=== PATIENT | female | born 1930 | race African-American/Black ===

== ENCOUNTER 2018-11-18 09:55 | Emergency (ER) | payer MEDICARE, OTHER ==
--- NOTE | 2018-11-18 09:59 | PDOC ---
History of Present Illness - General Chief Complaint: Rash Stated Complaint: ITCHY, RASH, PAIN Time Seen by Provider: 11/18/18 09:58 History Source: Patient Exam Limitations: No Limitations - History of Present Illness Initial Comments: 11/18/18 10:30 HPI Ms Byers is an 88 y/o female with h/o HTN, shingles, DM2 presenting with generalized faint rash on back x 2 days, associated with pain, itching. Has been applying calomine cream without effect. No other meds taken. No known triggers or environmental precipitants. No contact with new detergents or illnesses or clothing. Denies fever, chills, chest pain, SOB, palpitation, dizziness, weakness, N, V, D , abdominal pain, bladder and bowel problems, leg swelling, no prodromal URI sx. No sick contacts or travel. No new changes in medications. No suspicious food intake Allergies: None Past Medical History: as documented in EMR/HPI Social history: Lives with family. No tobacco, ETOH or drug use. Surgical history: noncontributory Meds: as documented in EMR PMD: Abril Review of systems Constitutional: no fevers or chills. HEENT: no headache or dizziness. No congestion. CVS: no cp or syncope. Resp: no sob. No cough. Gastrointestinal: no abdominal pain, nausea or vomiting. MUSCULOSKELETAL: No joint pain and swelling. No neck or back pain. SKIN: no redness or skin changes, no discharge, no wounds. +Rash Hematologic: no easy bruising/bleeding. NEUROLOGIC: No headache, dizziness, LOC or altered mental status. No weakness, numbness or tingling. Allergic/Immunologic: no allergies All other systems reviewed and negative, or as documented in HPI. Physical exam: General: Well appearing, awake and alert, NAD. HEENT: NCAT, PERRL, EOMI, clear conjunctiva, anicteric, moist mucus membranes, clear oropharynx, no oral lesions.. Neck: neck supple, FROM Resp: normal and even respirations, no respiratory distress CVS: 2+ peripheral pulses throughout, no peripheral edema Abdomen: soft, NTND, no peritoneal signs. Back: nontender, normal inspection and ROM MSK: no edema, MALLOY x4, ROM intact. No clubbing or cyanosis. normal bulk and tone. Neuro: alert, Skin: warm and well perfused, cap refill <2 sec, normal color; +faint small raised rash over upper back, crossing dermatome distribution; overlying calomine cream visible; no discharge, no crusting, no desquamatization, no vesicles, no mucosal membrane involvement Past History - Past Medical History Allergies/Adverse Reactions: Allergies Allergy/AdvReac Type Severity Reaction Status Date / Time No Known Drug Allergies Allergy Verified 11/18/18 09:57 Home Medications: Ambulatory Orders Amitriptyline HCl [Elavil -] 10 mg PO HS 11/18/18 Amlodipine Besylate 10 mg PO DAILY 11/18/18 Cilostazol 50 mg PO BID 11/18/18 Hydrocortisone 2.5% Lotion [Hytone 2.5% Lotion -] 1 applic TP BID PRN #1 bottle 11/18/18 Labetalol HCl 100 mg PO BID 11/18/18 Lisinopril/Hydrochlorothiazide [Lisinopril-Hctz 10-12.5 mg Tab] 1 each PO DAILY 11/18/18 Metformin HCl [Glucophage] 500 mg PO DAILY 11/18/18 [place]-3 Fatty Acids [[place]-3] 1,000 mg PO BID 11/18/18 Omeprazole 20 mg PO DAILY 11/18/18 Anemia: No Asthma: No Cancer: No Cardiac Disorders: No CVA: No COPD: No CHF: No Dementia: No Diabetes: No GI Disorders: No Disorders: No HTN: Yes Hypercholesterolemia: No Liver Disease: No Seizures: No Thyroid Disease: No - Surgical History Abdominal Surgery: No Appendectomy: No Cardiac Surgery: No Cholecystectomy: No Lung Surgery: No Neurologic Surgery: No Orthopedic Surgery: No - Family Disease History Family Disease History: Heart Disease: Father - Suicide/Smoking/Psychosocial Hx Smoking History: Never smoked Have you smoked in the past 12 months: No Hx Alcohol Use: No Drug/Substance Use Hx: No Substance Use Type: None Hx Substance Use Treatment: No Medical Decision Making - Medical Decision Making 11/18/18 10:31 DDx. allergic reaction: hypersensitivity reaction, allergic reaction, anaphylaxis, hives/urticaria. drug rash. dermatitis. serum sickness. vasculitis. medication side effect. exanthem. contact dermatitis, shingles. -No fevers or systemic findings, clinically well appearing. no mucosal involvement so doubt SJS/TEN. airway patent, doubt anaphylaxis or Dress syndrome. - No evidence of erythema multiforme, SJS/TEN, Lyme, cellulitis, necrotizing fasciitis, no angioedema, meningococcemia, cecilia mountain spotted fever. also does not appear as shingles, as crosses dermatomal distribution and diffuse appearing and no vesicular or crusting appearance. does not appear allergic or hives - given topical lidoderm patch, benadryl, tylenol with clinical improvement. VS wnl, stable - no systemic steroids for risk of hyperglycemia and side effect profile instructions on avoiding triggers, supportive care, benadryl prn Q6-8 hr ATC x 3 days, topical steroids d/w pt importance of f/u and pt agrees/understands; told pt to return to nearest ER immediately for any worsening sx incl but not limited to: fever, spreading rash, pain, sore throat, headache, dizziness, chest pain, trouble breathing, or any ssx concerning to the patient. I did d/w pt the aforementioned ddx as possibilities and pt understands to f/u even if better and to return to ER if un-changed/worse. Pt and family understand these instructions on d/c and is comfortable with discharge plan. 11/18/18 10:36 11/18/18 10:40 *DC/Admit/Observation/Transfer Diagnosis at time of Disposition: Rash - Discharge Dispostion Disposition: HOME Condition at time of disposition: Stable Decision to Admit order: No - Prescriptions Prescriptions: Hydrocortisone 2.5% Lotion [Hytone 2.5% Lotion -] 1 applic TP BID PRN #1 bottle PRN Reason: itching - Referrals Referrals: Arcenio Samuels MD [Primary Care Provider] - - Patient Instructions Printed Discharge Instructions: DI for Rash Additional Instructions: you most likely have a rash of unclear etiology this does not appear as shingles or infectious or other significant pathology at this time. you can apply topical lidoderm patch if rash becomes one sided, with vesicles and oozing and discharge, pain, sore throat, headache, dizziness, chest pain, trouble breathing return sooner. if there is fever or progressive symptoms of illness, wound development, odor, redness, swelling or signs of infection, mucosal membrane involvement of mouth, eyes or genitalia, return sooner. you can apply steroid cream topically due to your history of diabetes and glucose derangement risk. you can take benadryl 25 mg every 6- 8 hours as needed for itch relief. avoid particular triggers and keep the area clean. lo ms probable es que tenga brooks erupcin de etiologa poco marc [place] no aparece fermin culebrilla o patologa infecciosa u otra patologa significativa en breanna momento. se puede aplicar parche lidoderm tpico Si el sarpullido se vuelve unilateral, con vesculas y exudacin y secrecin, dolor, dolor de garganta, dolor de lee, mareos, dolor de pecho, dificultad para respirar regrese antes. Si hay fiebre o sntomas progresivos de enfermedad , desarrollo de la herida, olor, enrojecimiento, hinchazn o signos de infeccin , compromiso de la membrana mucosa de la boca, ojos o genitales, regrese antes. Puede aplicar brooks crema esteroide por va tpica debido a childers historial de diabetes y al riesgo de alteracin de la glucosa. puede emery benadryl 25 mg cada 6-8 horas segn sea necesario para aliviar la picazn. Evite los desencadenantes particulares y mantenga el sravan limpia. Print Language: MALAY - Post Discharge Activity
[2018-11-18 10:04] VITALS: BP 129/78; PULSE 90; TEMP 99; BMI 32.1
[2018-11-18] MEDS ORDERED: ACETAMINOPHEN 325 MG TABLET (FP) PO ONE (10:12)
[2018-11-18] MEDS ORDERED: diphenhydrAMINE HCL 50 MG CAPSULE PO ONE (10:12)
[2018-11-18] MEDS ORDERED: LIDOCAINE 5% TOPICAL PATCH TP ONE (10:12)
[2018-11-18] MEDS ORDERED: diphenhydrAMINE HCL 50 MG CAPSULE ONE (10:20)
[2018-11-18] MEDS ORDERED: ACETAMINOPHEN 325 MG TABLET (FP) ONE (10:20)
[2018-11-18] MEDS ORDERED: LIDOCAINE 5% TOPICAL PATCH ONE (10:20)
[2018-11-18] MEDS ORDERED: LIDOCAINE PATCH REMOVAL MC SCH (22:00)
== END 2018-11-18 11:00 | disposition home or self-care (01) ==
LOC: FER 09:55
DX: R21 Rash and other nonspecific skin eruption (principal); I10 Essential (primary) hypertension; E11.9 Type 2 diabetes mellitus without complications
CPT/HCPCS: 99282-25